=== PATIENT | male | born 1975 | race Hispanic/Latino ===

== ENCOUNTER 2017-02-06 15:53 | Observation (INO) | payer SELFPAY ==
--- NOTE | 2017-02-06 17:54 | Emergency Department Report ---
ED Chest Pain HPI - General Chief Complaint: Chest Pain Stated Complaint: CHEST PAIN Time Seen by Provider: 02/06/17 17:28 Source: patient Mode of arrival: Stretcher Limitations: No Limitations - History of Present Illness Initial Comments: 41-year-old male here with complaint of chest pain. Patient states that he has been having worsening chest pain course the last couple days. Pain is in the center of his chest and feels like it radiates to his back. He gets some nausea with that he gets some shortness of breath. He states he has worsening pain with exertion. Denies fevers chills nausea vomiting. He is a heavy smoker and has a strong family history of CAD. -: Gradual, days(s) (3) Onset: during rest, during exertion Pain Location: substernal Pain Radiation: back Severity: moderate Quality: tightness Worsens With: exertion Treatments Prior to Arrival: none - Related Data Home Medications Medication Instructions Recorded Confirmed Last Taken ALBUTEROL Inhaler [ProAir HFA 2 puff IH QID PRN 01/29/13 01/29/13 01/29/13 Inhaler] ALPRAZolam [Xanax TAB] 2 mg PO TID PRN 01/29/13 01/29/13 01/29/13 Azithromycin [Zithromax TAB] 500 mg PO QDAY 01/29/13 01/29/13 01/29/13 Carisoprodol [Soma] 350 mg PO TID 01/29/13 01/29/13 01/29/13 Hydrocodone Bit/Acetaminophen 1 each PO Q6H PRN 01/29/13 01/29/13 01/28/13 [Lortab 10-500 mg] Mometasone/Formoterol [Dulera 200 2 puff IH BID 01/29/13 01/29/13 01/29/13 Mcg/5 Mcg Inhaler] ALBUTEROL Inhaler [ProAir HFA 2 puff IH QID PRN 04/18/13 04/18/13 Unknown Inhaler] Diazepam [Valium] 10 mg PO Q8H PRN 04/18/13 04/18/13 Unknown Meloxicam [Mobic] 7.5 mg PO QDAY 04/18/13 04/18/13 Unknown Mometasone/Formoterol [Dulera 200 2 puff IH BID 04/18/13 04/18/13 Unknown Mcg/5 Mcg Inhaler] Morphine [Morphine TAB] 30 mg PO 04/18/13 04/18/13 Unknown Oxycodone HCl [oxyCODONE TAB] 20 mg PO Q6H PRN 04/18/13 04/18/13 Unknown Previous Rx's Medication Instructions Recorded Last Taken Type Promethazine [Phenergan TAB] 25 mg PO Q6H PRN #14 tablet 01/29/13 Unknown Rx HYDROcodone/APAP 7.5-325 [[place] 1 each PO Q6HR PRN #20 tablet 11/29/13 Unknown Rx 7.5/325 mg] Allergies Allergy/AdvReac Type Severity Reaction Status Date / Time butorphanol tartrate Allergy Rash Verified 04/18/13 16:47 [From Stadol] ketorolac tromethamine Allergy Itching Verified 01/29/13 12:04 [From Toradol] tramadol HCl [From Ultram] Allergy Swelling Verified 01/29/13 12:04 Heart Score - HEART Score History: Highly suspicious EKG: Normal Age: < 45 Risk factors: > 3 risk factors or hx of atherosclerotic disease Troponin: < normal limit HEART Score: 4 ED Review of Systems ROS: Stated complaint: CHEST PAIN Other details as noted in HPI Comment: All other systems reviewed and negative Constitutional: denies: chills, fever Eyes: denies: eye pain, eye discharge, vision change ENT: denies: ear pain, throat pain Respiratory: denies: cough, shortness of breath, wheezing Cardiovascular: chest pain, dyspnea on exertion. denies: palpitations Endocrine: no symptoms reported Gastrointestinal: denies: abdominal pain, nausea, diarrhea Genitourinary: denies: urgency, dysuria Musculoskeletal: denies: back pain, joint swelling, arthralgia Skin: denies: rash, lesions Neurological: denies: headache, weakness, paresthesias Psychiatric: denies: anxiety, depression Hematological/Lymphatic: denies: easy bleeding, easy bruising ED Past Medical Hx - Past Medical History Hx Hypertension: Yes Hx COPD: Yes Additional medical history: chronic back and knee pain - Surgical History Past Surgical History?: Yes Additional Surgical History: 9 right knee surgeries. Appendectomy. Vasectomy - Social History Smoking Status: Current Every Day Smoker Substance Use Type: None - Medications Home Medications: Home Medications Medication Instructions Recorded Confirmed Last Taken Type ALBUTEROL Inhaler [ProAir HFA 2 puff IH QID PRN 01/29/13 01/29/13 01/29/13 History Inhaler] ALPRAZolam [Xanax TAB] 2 mg PO TID PRN 01/29/13 01/29/13 01/29/13 History Azithromycin [Zithromax TAB] 500 mg PO QDAY 01/29/13 01/29/13 01/29/13 History Carisoprodol [Soma] 350 mg PO TID 01/29/13 01/29/13 01/29/13 History Hydrocodone Bit/Acetaminophen 1 each PO Q6H PRN 01/29/13 01/29/13 01/28/13 History [Lortab 10-500 mg] Mometasone/Formoterol [Dulera 200 2 puff IH BID 01/29/13 01/29/13 01/29/13 History Mcg/5 Mcg Inhaler] Promethazine [Phenergan TAB] 25 mg PO Q6H PRN #14 tablet 01/29/13 Unknown Rx ALBUTEROL Inhaler [ProAir HFA 2 puff IH QID PRN 04/18/13 04/18/13 Unknown History Inhaler] Diazepam [Valium] 10 mg PO Q8H PRN 04/18/13 04/18/13 Unknown History Meloxicam [Mobic] 7.5 mg PO QDAY 04/18/13 04/18/13 Unknown History Mometasone/Formoterol [Dulera 200 2 puff IH BID 04/18/13 04/18/13 Unknown History Mcg/5 Mcg Inhaler] Morphine [Morphine TAB] 30 mg PO 04/18/13 04/18/13 Unknown History Oxycodone HCl [oxyCODONE TAB] 20 mg PO Q6H PRN 04/18/13 04/18/13 Unknown History HYDROcodone/APAP 7.5-325 [[place] 1 each PO Q6HR PRN #20 tablet 11/29/13 Unknown Rx 7.5/325 mg] ED Physical Exam - General Limitations: No Limitations General appearance: alert, in no apparent distress - Head Head exam: Present: atraumatic, normocephalic - Eye Eye exam: Present: normal appearance - ENT ENT exam: Present: mucous membranes moist - Neck Neck exam: Present: normal inspection - Respiratory Respiratory exam: Present: normal lung sounds bilaterally. Absent: respiratory distress - Cardiovascular Cardiovascular Exam: Present: regular rate, normal rhythm. Absent: systolic murmur, diastolic murmur, rubs, gallop - GI/Abdominal GI/Abdominal exam: Present: soft, normal bowel sounds - Rectal Rectal exam: Present: deferred - Extremities Exam Extremities exam: Present: normal inspection - Back Exam Back exam: Present: normal inspection - Neurological Exam Neurological exam: Present: alert, oriented X3 - Psychiatric Psychiatric exam: Present: normal affect, normal mood - Skin Skin exam: Present: warm, dry, intact, normal color. Absent: rash ED Medical Decision Making - Lab Data Result diagrams: 02/06/17 17:42 02/06/17 17:42 - EKG Data -: EKG Interpreted by Me - EKG Data 02/06/17 17:55 Sinus 81 normal axis normal intervals and no ST-T wave changes - Medical Decision Making 41-year-old male here with complaint of chest pain. Patient has pain radiates to his left shoulder and back. In addition he's had some nausea and dyspnea. He describes the pain is worsening with exertion. He states he cannot take aspirin due to GI bleed in the past. Plan to give him a single dose of aspirin here in the emergency department. In addition we'll give him nitroglycerin for his pain. His EKG is unremarkable. His heart score is a 4. He denies recent stress testing. Portions of this chart were dictated with dictation software. There may be dictation errors contained within this note. Critical care attestation.: If time is entered above; I have spent that time in minutes in the direct care of this critically ill patient, excluding procedure time. ED Disposition Clinical Impression: Chest pain Disposition: OP ADMIT IP TO THIS HOSP Is pt being admited?: Yes Condition: Stable Instructions: Chest Pain (ED)
[2017-02-06 18:06] LABS: Basophils % (Auto) 0.6 % (0.0-1.8); Eosinophils % (Auto) 3.6 % (0.0-4.3); Hematocrit 53.1 % (35.5-45.6); Hemoglobin 17.8 gm/dl (11.8-15.2); Mean Corpuscular HGB Conc 34 % (32-34); Mean Corpuscular Hemoglobin 31 pg (28-32); Mean Corpuscular Volume 91 fl (84-94); Platelet Count 265 K/mm3 (140-440); Red Blood Count 5.84 M/mm3 (3.65-5.03); Red Cell Distribution Width 13.6 % (13.2-15.2); White Blood Count 14.1 K/mm3 (4.5-11.0)
--- NOTE | 2017-02-06 18:14 | XRay Report ---
FINAL REPORT PROCEDURE: Chest. TECHNIQUE: Frontal and lateral views. HISTORY: Chest pain. COMPARISON: No prior studies are available for comparison. FINDINGS: The heart and mediastinum appear normal. The lungs are clear and well expanded. There are no pleural effusions. The soft tissues and regional skeleton are unremarkable. IMPRESSION: Normal study.
[2017-02-06 18:27] LABS: Anion Gap 21 mmol/L; Blood Urea Nitrogen 13 mg/dL (9-20); Calcium 9.7 mg/dL (8.4-10.2); Carbon Dioxide 26 mmol/L (22-30); Chloride 102.3 mmol/L (98-107); Glucose 87 mg/dL (75-100); Potassium 4.9 mmol/L (3.6-5.0); Sodium 144 mmol/L (137-145)
[2017-02-06] MEDS ORDERED: NITROSTAT SL PRN (18:32)
[2017-02-06] MEDS ORDERED: ASPIRIN PO ONE (18:32)
[2017-02-06] MEDS ORDERED: MORPHINE IV ONE (19:42)
[2017-02-06] MEDS ORDERED: MORPHINE ONE (19:48)
[2017-02-06] MEDS ORDERED: NITROSTAT SL ONE (19:50)
[2017-02-06] MEDS ORDERED: MORPHINE IV PRN (21:47)
[2017-02-06] MEDS: HABITROL TD SCH (21:57)
--- NOTE | 2017-02-06 22:04 | History and Physical Report ---
History of Present Illness Date of examination: 02/06/17 Date of admission: 02/06/17 18:35 Chief complaint: L chest pain for 3 days History of present illness: - History of Present Illness Initial Comments: 41-year-old male here with complaint of chest pain. Patient states that he has been having worsening chest pain course the last couple days. Pain is in the center of his chest and feels like it radiates to his back. He gets some nausea with that he gets some shortness of breath. He states he has worsening pain with exertion. Denies fevers chills nausea vomiting. He is a heavy smoker and has a strong family history of CAD.Patient was due for cardiac stents which he postpones sec to loosing insurance. -: Gradual, days(s) (3) Onset: during rest, during exertion Pain Location: substernal Pain Radiation: back Severity: moderate Quality: tightness Worsens With: exertion Treatments Prior to Arrival: none Heart Score - HEART Score History: Highly suspicious EKG: Normal Age: < 45 Risk factors: > 3 risk factors or hx of atherosclerotic disease Troponin: < normal limit HEART Score: 4 Review of Systems ROS: Stated complaint: CHEST PAIN Other details as noted in HPI Comment: All other systems reviewed and negative Constitutional: denies: chills, fever Eyes: denies: eye pain, eye discharge, vision change ENT: denies: ear pain, throat pain Respiratory: denies: cough, shortness of breath, wheezing Cardiovascular: chest pain, dyspnea on exertion. denies: palpitations Endocrine: no symptoms reported Gastrointestinal: denies: abdominal pain, nausea, diarrhea Genitourinary: denies: urgency, dysuria Musculoskeletal: denies: back pain, joint swelling, arthralgia Skin: denies: rash, lesions Neurological: denies: headache, weakness, paresthesias Psychiatric: denies: anxiety, depression Hematological/Lymphatic: denies: easy bleeding, easy bruising - Past Medical History Hx Hypertension: Yes Hx COPD: Yes Additional medical history: chronic back and knee pain - Surgical History Past Surgical History?: Yes Additional Surgical History: 9 right knee surgeries. Appendectomy. Vasectomy - Social History Smoking Status: Current Every Day Smoker Substance Use Type: None Fam Hx HTN - Medications Home Medications: Home Medications Medication Instructions Recorded Confirmed Last Taken Type ALBUTEROL Inhaler [ProAir HFA 2 puff IH QID PRN 01/29/13 01/29/13 01/29/13 History Inhaler] ALPRAZolam [Xanax TAB] 2 mg PO TID PRN 01/29/13 01/29/13 01/29/13 History Azithromycin [Zithromax TAB] 500 mg PO QDAY 01/29/13 01/29/13 01/29/13 History Carisoprodol [Soma] 350 mg PO TID 01/29/13 01/29/13 01/29/13 History Hydrocodone Bit/Acetaminophen 1 each PO Q6H PRN 01/29/13 01/29/13 01/28/13 History [Lortab 10-500 mg] Mometasone/Formoterol [Dulera 200 2 puff IH BID 01/29/13 01/29/13 01/29/13 History Mcg/5 Mcg Inhaler] Promethazine [Phenergan TAB] 25 mg PO Q6H PRN #14 tablet 01/29/13 Unknown Rx ALBUTEROL Inhaler [ProAir HFA 2 puff IH QID PRN 04/18/13 04/18/13 Unknown History Inhaler] Diazepam [Valium] 10 mg PO Q8H PRN 04/18/13 04/18/13 Unknown History Meloxicam [Mobic] 7.5 mg PO QDAY 04/18/13 04/18/13 Unknown History Mometasone/Formoterol [Dulera 200 2 puff IH BID 04/18/13 04/18/13 Unknown History Mcg/5 Mcg Inhaler] Morphine [Morphine TAB] 30 mg PO 04/18/13 04/18/13 Unknown History Oxycodone HCl [oxyCODONE TAB] 20 mg PO Q6H PRN 04/18/13 04/18/13 Unknown History HYDROcodone/APAP 7.5-325 [[place] 1 each PO Q6HR PRN #20 tablet 11/29/13 Unknown Rx 7.5/325 mg] Medications and Allergies Allergies Allergy/AdvReac Type Severity Reaction Status Date / Time butorphanol tartrate Allergy Rash Verified 04/18/13 16:47 [From Stadol] ketorolac tromethamine Allergy Itching Verified 01/29/13 12:04 [From Toradol] tramadol HCl [From Ultram] Allergy Swelling Verified 01/29/13 12:04 aspirin AdvReac Bleeding Verified 02/06/17 18:51 Active Meds: Active Medications Morphine Sulfate (Morphine) 2 mg IV Q4H PRN PRN Reason: Pain, Moderate (4-6) Last Admin: 02/06/17 21:58 Dose: 2 mg Nicotine (Habitrol) 21 mg TD QDAY FRANKIE Last Admin: 02/06/17 21:57 Dose: 21 mg Nitroglycerin (Nitrostat) 0.4 mg SL .Q5MIN PRN PRN Reason: Chest Pain Last Admin: 02/06/17 19:51 Dose: 0.4 mg Exam - Constitutional Vitals: Temp Pulse Resp BP Pulse Ox 97.4 F L 78 18 117/82 100 02/06/17 17:29 02/06/17 20:46 02/06/17 21:58 02/06/17 20:46 02/06/17 20:46 General appearance: Present: no acute distress, well-nourished - EENT Eyes: Present: PERRL ENT: hearing intact, clear oral mucosa - Neck Neck: Present: supple, normal ROM - Respiratory Respiratory effort: normal Respiratory: bilateral: CTA - Cardiovascular Heart rate: 76 Rhythm: regular Heart Sounds: Present: S1 & S2. Absent: rub, click - Extremities Extremities: no ischemia, pulses intact, pulses symmetrical, No edema Peripheral Pulses: within normal limits - Abdominal General gastrointestinal: Present: soft, non-tender, non-distended, normal bowel sounds Male genitourinary: Present: normal - Rectal Rectal Exam: deferred - Integumentary Integumentary: Present: clear, warm, dry - Musculoskeletal Musculoskeletal: gait normal, strength equal bilaterally - Psychiatric Psychiatric: appropriate mood/affect, intact judgment & insight - Neurologic Neurologic: CNII-XII intact, moves all extremities - Allied Health Allied health notes reviewed: nursing, case management Results - Labs CBC & Chem 7: 02/06/17 17:42 02/07/17 04:35 Labs: Laboratory Last Values WBC 14.1 K/mm3 (4.5-11.0) H 02/06/17 17:42 RBC 5.84 M/mm3 (3.65-5.03) H 02/06/17 17:42 Hgb 17.8 gm/dl (11.8-15.2) H 02/06/17 17:42 Hct 53.1 % (35.5-45.6) H 02/06/17 17:42 MCV 91 fl (84-94) 02/06/17 17:42 MCH 31 pg (28-32) 02/06/17 17:42 MCHC 34 % (32-34) 02/06/17 17:42 RDW 13.6 % (13.2-15.2) 02/06/17 17:42 Plt Count 265 K/mm3 (140-440) 02/06/17 17:42 Lymph % (Auto) 28.4 % (13.4-35.0) 02/06/17 17:42 [place] % (Auto) 7.0 % (0.0-7.3) 02/06/17 17:42 Eos % (Auto) 3.6 % (0.0-4.3) 02/06/17 17:42 Baso % (Auto) 0.6 % (0.0-1.8) 02/06/17 17:42 Lymph # 4.0 K/mm3 (1.2-5.4) 02/06/17 17:42 [place] # 1.0 K/mm3 (0.0-0.8) H 02/06/17 17:42 Eos # 0.5 K/mm3 (0.0-0.4) H 02/06/17 17:42 Baso # 0.1 K/mm3 (0.0-0.1) 02/06/17 17:42 Seg Neutrophils % 60.4 % (40.0-70.0) 02/06/17 17:42 Seg Neutrophils # 8.5 K/mm3 (1.8-7.7) H 02/06/17 17:42 Sodium 144 mmol/L (137-145) 02/06/17 17:42 Potassium 4.9 mmol/L (3.6-5.0) 02/06/17 17:42 Chloride 102.3 mmol/L (98-107) 02/06/17 17:42 Carbon Dioxide 26 mmol/L (22-30) 02/06/17 17:42 Anion Gap 21 mmol/L 02/06/17 17:42 BUN 13 mg/dL (9-20) 02/06/17 17:42 Creatinine 1.0 mg/dL (0.8-1.5) 02/06/17 17:42 Estimated GFR > 60 ml/min 02/06/17 17:42 BUN/Creatinine Ratio 13.00 % 02/06/17 17:42 Glucose 87 mg/dL (75-100) 02/06/17 17:42 Calcium 9.7 mg/dL (8.4-10.2) 02/06/17 17:42 Troponin T < 0.010 ng/mL (0.00-0.029) 02/06/17 19:47 - Imaging and Cardiology EKG: report reviewed Chest x-ray: report reviewed Assessment and Plan Advance Directives: Yes (FC) VTE prophylaxis?: Chemical Plan of care discussed with patient/family: Yes - Patient Problems (1) Acute coronary syndrome Current Visit: Yes Status: Acute Plan to address problem: Patient has proven CAD and due for stents W/u initiated Serial CE's Cath versus Lexiscan (2) COPD (chronic obstructive pulmonary disease) Current Visit: Yes Status: Chronic Qualifiers: COPD type: C Chronic bronchitis type: C Emphysema type: unspecified Qualified Code(s): J43.9 - Emphysema, unspecified Plan to address problem: Cont Dulera and Proventil (3) KIERSTEN (generalized anxiety disorder) Current Visit: Yes Status: Chronic Plan to address problem: Cont Xanax (4) Nicotine dependence Current Visit: Yes Status: Chronic Qualifiers: Nicotine product type: cigarettes Substance use status: S Plan to address problem: Nicoderm patch initiated (5) DVT prophylaxis Current Visit: Yes Status: Acute Plan to address problem: On Lovenox
[2017-02-06] MEDS ORDERED: DILAUDID IV PRN ×2 (22:05→22:07)
[2017-02-06] MEDS ORDERED: DULCOLAX PR PRN (22:05)
[2017-02-06] MEDS ORDERED: TYLENOL PO PRN (22:05)
[2017-02-06] MEDS ORDERED: ZOFRAN IV PRN (22:05)
[2017-02-06] MEDS ORDERED: MILK OF MAGNESIA PO PRN (22:05)
[2017-02-06 23:47] LABS: Creatine Kinase 33 units/L (55-170)
[2017-02-06 23:49] LABS: Creatine Kinase MB < 1.0 ng/mL (0.0-4.0)
[2017-02-07 05:43] LABS: Alanine Aminotransferase 17 units/L (7-56); Albumin 3.8 g/dL (3.9-5); Albumin/Globulin Ratio 1.5 %; Alkaline Phosphatase 75 units/L (35-129); BUN/Creatinine Ratio 16.66; Blood Urea Nitrogen 15 mg/dL (9-20); Calcium 8.6 mg/dL (8.4-10.2); Carbon Dioxide 22 mmol/L (22-30); Glucose 90 mg/dL (75-100); Total Protein 6.3 g/dL (6.3-8.2)
[2017-02-07 05:44] LABS: Anion Gap 21 mmol/L; Chloride 101.2 mmol/L (98-107); Creatine Kinase 28 units/L (55-170); Potassium 3.8 mmol/L (3.6-5.0); Sodium 140 mmol/L (137-145)
[2017-02-07 05:50] LABS: Creatine Kinase MB < 1.0 ng/mL (0.0-4.0)
--- NOTE | 2017-02-07 07:45 | Admit Criteria Form ---
Admission Criteria Documentation: CARDIOLOGY GRG Clinical Indications for Admission to Inpatient Care ([place]/check or initial the applicable condition/criteria) Hospital admission is needed for appropriate care of the patient because of ANY ONE of the following: [ ] I. Hemodynamic instability as indicated by ALL of the following (1)(2)(3) (4)(5)(6)(7)(8)(9)(10) [ ]a) Vital sign abnormality not readily corrected by appropriate treatment with 12-24 hours for ANY ONE: [ ]i) Hypotension that persists despite appropriate treatment (eg, volume repletion) [ ]ii) Tachycardiathat persists despite appropriate tx ( e.g., analgesia, fluids, sedation as indicated [ ]iii) Orthostatic vital sign changes that persists despite appropriate treatment (eg, volume repletion) [ ]b) Vital sign abnormailty that is severe indicated by ANY ONE of the following: [ ]i) Inadequate perfusion indicated by ANY ONE of the following: [ ] 1) Lactic acidosis (> 2 mmol/L) [ ] 2) New abnormal capillary refill (> 3 seconds) [ ] 3) Reduced urine output [ ] 4) New altered mental status [ ] 5) Myocardial Ischemia [ ] 6) Other metabolic acidosis (arterial pH <7.35 ) not otherwise explained. [ ]ii) Mean arterial pressure[A] less than 60 mm Hg [ ]iii) Mean arterial pressure[A] less than 70 mm Hg after 30 minutes of appropriate treatment (eg, fluid resuscitation) [ ]iv) Sustained heart rate greater than 120 beats per minute in adult or child 6 years or older[B] [ ]v) IV inotropic or vasopressor medication required to maintain adequate blood pressure or perfusion [ ] II. Severe heart failure as indicated by ANY ONE of the following(17)(18) [ ]a) Respiratory distress [ ]b) Hypotension [ ]c) Debilitating anasarca refractory to therapy (eg, tissue breakdown with infection)[C](19) [ ]d) Cardiac arrhythmias of immediate concern [ ]e) Myocardial ischemia [ ] III. Cardiac arrhythmias or findings of immediate concern indicated by ANY ONE of the following (21)(22): [ ] a) Heart rhythms that are inherently dangerous or unstable indicated by ANY ONE of the following (23)(24)(25): [ ] i) Resuscitated ventricular fibrillation or cardiac arrest [ ] ii) Ventricular escape rhythm [ ] iii) Sustained ventricular tachycardia (30 seconds or more of ventricular rhythm at greater than 100 beats per minute) [ ] iv) Nonsustained ventricular tachycardia and ANY ONE of the following: [ ] 1) Suspected cardiac ischemia as cause or consequence of ventricular tachycardia [ ] 2) Acute myocarditis [ ] b) Unstable cardiac conduction defects indicated by ANY ONE of the following(25)(26)(27) [ ] i) Type II second-degree atrioventricular block [ ]ii) Third-degree atrioventricular block [ ]iii) New-onset left bundle branch block with suspected myocardial ischemia [ ]c) Any heart rhythm and ANY ONE of the following (23)(24)(28)(29) (30) [ ] i) Continuous long-term ECG monitoring needed (e.g., initiation of drug requiring monitoring for more than 24 hours) [ ] ii) Patient has automatic implanted cardioverter defibrillator that is repeatedly firing, malfunctioning, or in need of immediate adjustment of settings beyond the scope of ambulatory or observation care [ ]d) Heart rhythms of concern due to ANY ONE of the following: [ ] i) Hypotension [ ] ii) Respiratory distress [ ] iii) Association with other significant symptoms (e.g., bradycardia with syncope or ongoing dizziness, supraventricular tachycardia with chest pain (28)(29)(31) [ ] IV. Monitoring for cardiac contusion beyond the scope of observation care needed [A](32)(33)(34) [ ] V. Surgical or device complication (e.g., valve replacement complication , ICD disfunction or pacemaker dysfunction) (49)(50)(51)(52)(53)(54) [ ] . Inpatient palliative care needed. [F](51)(52) Also use Inpatient Palliative Care Criteria [ ] VII. Nonbacterial thrombotic (mar[place]) endocarditis(43)(44)(55)(56)(57) [X] VIII. Cardiology condition, symptom, or finding for which emergency and observation care has failed or are not considered appropriate. [ ] IX. Acute valvular disease requiring inpatient as indicated by ANY ONE of the following (40)(41) [ ]a) Acute valvular regurgitation (42) [ ]b) Noninfectious valvulitis (43)(44) [ ]c) Obstructive valve thrombosis (45)(46) [ ]d) Paravalvular leak(47)(48) [ ]e) Other significant valvular disorder remaining after emergency or observation level of care (as appropriate) [ ]X. Pericardial disease requiring inpatient treatment as indicated by ANY ONE of the following (35)(36)(37)(38) [ ]a) Suspected tamponade [ ]b) Hemopericardium [ ]c) Other significant pericardial disorder remaining after emergency or observation level of care (as appropriate)(39) [ ] XI. Cardiac ischemia beyond scope of emergency and observation care. [ ] XII. Cyanotic heart disease requiring inpatient care as indicated by 1 or more of the following(58)(59)(60): [ ]a) Acute onset of hypoxemia [ ]b) Exacerbation [ ] XIII. Hypertension requiring inpatient treatment as indicated by ANYONE of the following(11)(12)(13)(14): [ ]a) Severe hypertension (SBP greater than 180 mm Hg or DBP greater than 110 mm Hg, or greater than the 95th percentile for age, gender, and height in pediatric patients) that cannot be controlled (eg, to SBP less than 160 mm Hg and DBP less than 100 mm Hg) by emergency department or observation care treatment(15) [ ]b) Acute end organ damage secondary to hypertension (SBP greater than 140 mm Hg or DBP greater than 90 mm Hg) as indicated by ANYONE of the following: [ ] i) Hypertensive encephalopathy (eg, Altered mental status)(16) [ ] ii) Cerebral infarction [ ] iii) Intracranial hemorrhage [ ] iv) Myocardial ischemia or infarction [ ] v) Heart failure (eg, pulmonary edema) [ ] vi) Aortic dissection [ ] vii) Increased creatinine (new) with reduction of more than 50% in estimated glomerular filtration rate from baseline [ ] viii) Papilledema [ ] ix) Retinal hemorrhage [ ] x) Microangiopathic hemolytic anemia [ ] xi) Seizure [ ] xii) Other significant finding secondary to hypertension [ ] XIV. Complications of transplanted heart indicated by ANY ONE of the following(61): [ ]a) Acute graft rejection requiring inpatient management (eg, intravenous imunosuppression)(62)(63) [ ]b) Acute graft heart failure indicated by ANY ONE of the following(64): [ ] i) Hemodynamic instability [ ] ii) Cardiac arrhythmias of immediate concern [ ] iii) Pulmonary edema that is very severe (eg, mechanical ventilation needed, imminent or likely, need for 100% oxygen to keep oxygen saturation above 90%) [ ] iv) Pulmonary edema that is persistent as indicated by ALL of the following: [ ] 1) New need for oxygen therapy to keep oxygen saturation above 90 % (or increased FiO2 need from baseline) [ ] 2) Has not improved sufficiently with emergency department or observation care IV diuretics or other heart failure treatments[E]. [ ] iv) Altered mental status that is severe or persistent [ ] iv) Increased creatinine (new on laboratory test) with reduction of more than 50% in estimated glomerular filtration rate from baseline [ ] iv) Progressively (ongoing) rising creatinine (known from past laboratory test) with reduction of more than 25% in estimated glomerular filtration rate from baseline [ ] iv) Acute renal failure [ ] iv) Acute peripheral ischemia (eg, examination shows pulseless, cool, mottled, or cyanotic extremity) [ ] iv) Pulmonary artery catheter monitoring needed [ ] iv) Other sign or symptom of heart failure requiring inpatient treatment (ie, too severe or not responsive to outpatient and observation care treatment) [ ]c) Infection requiring inpatient management (eg, Hemodynamic instability, need for intravenous antimicrobial treatment)(66)(67)(68)(69)(70) [ ]d) Cardiac allograft vasculopathy requiring inpatient management (eg evidence of cardiacischemia)(71) [ ]e) Other complication of transplanted heart (eg, stroke, severe pulmonary hypertension, severe valvular dysfunction) requiring inpatient management(72) The original [employer] content created by [employer] has been revised. The portions of the content which have been revised are identified through the use of italic text or in bold, and [facility] has neither reviewed nor approved the modified material. All other unmodified content is copyright [employer] [employer] [facility]. Please see references footnoted in the original [employer] edition 2017 Admission Criteria Met: Yes
[2017-02-07] MEDS ORDERED: LEXISCAN IV ONE ×2 (08:18→08:38)
[2017-02-07] MEDS ORDERED: PEPCID PO SCH (10:00)
[2017-02-07] MEDS: HABITROL TD SCH (10:03)
--- NOTE | 2017-02-07 10:51 | Consultation ---
History of Present Illness Consult date: 02/07/17 Consult reason: chest pain History of present illness: There is a 41 year old male who is presenting with substernal chest pain at rest. Denies any diaphoresis nausea or vomiting. He was admitted for further evaluation and management Past History Past Medical History: COPD, hypertension Past Surgical History: Other (Knee surgery) Social history: single, smoking. denies: alcohol abuse Family history: no significant family history Medications and Allergies Allergies Allergy/AdvReac Type Severity Reaction Status Date / Time butorphanol tartrate Allergy Rash Verified 04/18/13 16:47 [From Stadol] ketorolac tromethamine Allergy Itching Verified 01/29/13 12:04 [From Toradol] tramadol HCl [From Ultram] Allergy Swelling Verified 01/29/13 12:04 aspirin AdvReac Bleeding Verified 02/06/17 18:51 Active Meds: Active Medications Acetaminophen (Tylenol) 650 mg PO Q4H PRN PRN Reason: Pain MILD(1-3)/Fever >100.5/BATRES Bisacodyl (Dulcolax) 10 mg CO QDAY PRN PRN Reason: Constipation unrelieved by MOM Famotidine (Pepcid) 20 mg PO BID FRANKIE Hydromorphone HCl (Dilaudid) 1 mg IV Q3H PRN PRN Reason: Pain , Severe (7-10) Last Admin: 02/07/17 04:31 Dose: 1 mg Magnesium Hydroxide (Milk Of Magnesia) 30 ml PO Q4H PRN PRN Reason: Constipation Morphine Sulfate (Morphine) 2 mg IV Q4H PRN PRN Reason: Pain, Moderate (4-6) Last Admin: 02/06/17 21:58 Dose: 2 mg Nicotine (Habitrol) 21 mg TD QDAY FRANKIE Last Admin: 02/06/17 21:57 Dose: 21 mg Nitroglycerin (Nitrostat) 0.4 mg SL .Q5MIN PRN PRN Reason: Chest Pain Last Admin: 02/06/17 19:51 Dose: 0.4 mg Ondansetron HCl (Zofran) 4 mg IV Q8H PRN PRN Reason: N/V unrelieved by Reglan Review of Systems Cardiovascular: chest pain Physical Examination Vital Signs Temp Pulse Resp BP Pulse Ox 97.4 F L 75 16 146/85 99 02/06/17 17:29 02/06/17 17:29 02/06/17 17:29 02/06/17 17:29 02/06/17 17:29 General appearance: no acute distress, well-nourished HEENT: Positive: PERRL, Mucus Membranes Moist Neck: Positive: neck supple, trachea midline Cardiac: Positive: Reg Rate and Rhythm, S1/S2. Negative: Audible Murmur Lungs: Positive: clear to auscultation, Normal Breath Sounds Neuro: Positive: Grossly Intact Abdomen: Positive: Soft, Active Bowel Sounds. Negative: Tender, Distended Male genitourinary: Positive: normal Skin: Positive: Clear Incision: Cardiac Cath Site Musculoskeletal: No Pain, Normal Range of Motion Extremities: Present: normal. Absent: edema Results 02/06/17 17:42 02/07/17 04:35 Cardiac Enzymes 02/06/17 02/07/17 02/07/17 Range/Units 22:31 04:35 04:35 AST 13 (5-40) units/L CK-MB (CK-2) < 1.0 < 1.0 (0.0-4.0) ng/mL Comprehensive Metabolic Panel 02/07/17 Range/Units 04:35 Sodium 140 (137-145) mmol/L Potassium 3.8 D (3.6-5.0) mmol/L Chloride 101.2 (98-107) mmol/L Carbon Dioxide 22 (22-30) mmol/L BUN 15 (9-20) mg/dL Creatinine 0.9 (0.8-1.5) mg/dL Glucose 90 (75-100) mg/dL Calcium 8.6 (8.4-10.2) mg/dL AST 13 (5-40) units/L ALT 17 (7-56) units/L Alkaline Phosphatase 75 (35-129) units/L Total Protein 6.3 (6.3-8.2) g/dL Albumin 3.8 L (3.9-5) g/dL - EKG Interpretation EKG: sinus rhythm Assessment and Plan 1. Atypical chest pain probably musculoskeletal in origin 2. Chronic obstructive pulmonary disease 3. Polycythemia probably secondary polycythemia due to smoking Plan. Patient is currently stable Lexiscan thallium scan was done today and showed normal myocardial perfusion scan images. Recommends steroid anti-inflammatory drugs as required.
[2017-02-07 11:27] LABS: Creatine Kinase 35 units/L (55-170)
[2017-02-07 11:41] LABS: Creatine Kinase MB < 1.0 ng/mL (0.0-4.0)
--- NOTE | 2017-02-07 12:36 | Discharge Summary ---
Providers - Providers Date of Admission: 02/06/17 18:35 Date of discharge: 02/07/17 Attending physician: MARCIA NOE 02/06/17 22:05 Consult to Physician [CONS] Routine Consulting Provider: GENOVEVA CEE Reason For Exam: ACS Place consult to:: Dr. Cee Notified:: Gera MEANS Phone number called:: Was contact made?: Yes If yes, spoke with:: [facility] service Time called:: 08:43 Primary care physician: [employer] Hospitalization Condition: Good Pertinent studies: Lexiscan unremarkable Hospital course: He presented with atypical chest pain brought in worked up for cardiac etiology was negative thought to be costochondritis. Will give patient medication for costochondritis. Disposition: TO HOME OR SELFCARE - Discharge Diagnoses (1) Chest pain Status: Acute Qualifiers: Chest pain type: C Ischemic chest pain type: I Comment: Atypical secondary to costochondritis we'll discharge with NSAIDs. (2) Nicotine dependence Status: Chronic Qualifiers: Nicotine product type: cigarettes Substance use status: S Comment: Physical cessation patient states he is on management to cut down and is down to half a pack. We'll continue the gum. Core Measure Documentation - Palliative Care Palliative Care/ Comfort Measures: Not Applicable - Core Measures Any of the following diagnoses?: none Exam - Constitutional Vitals: Temp Pulse Resp BP Pulse Ox 98.2 F 107 H 18 128/97 97 02/07/17 05:41 02/07/17 09:11 02/07/17 04:31 02/07/17 09:11 02/06/17 21:00 General appearance: Present: no acute distress, well-nourished - EENT Eyes: Present: PERRL ENT: hearing intact, clear oral mucosa - Neck Neck: Present: supple, normal ROM - Respiratory Respiratory effort: normal Respiratory: bilateral: CTA - Cardiovascular Heart Sounds: Present: S1 & S2. Absent: rub, click - Extremities Extremities: pulses symmetrical, No edema Peripheral Pulses: within normal limits - Abdominal General gastrointestinal: Present: soft, non-tender, non-distended, normal bowel sounds Male genitourinary: Present: normal - Integumentary Integumentary: Present: clear, warm, dry - Musculoskeletal Musculoskeletal: gait normal, strength equal bilaterally - Psychiatric Psychiatric: appropriate mood/affect, intact judgment & insight - Neurologic Neurologic: CNII-XII intact, moves all extremities Plan Activity: no restrictions Weight Bearing Status: Non-Weight Bearing Diet: low cholesterol Special Instructions: smoking cessation Follow up with: PRIMARY CARE, [Primary Care Provider] - 7 Days Prescriptions: Nicotine [Habitrol] 21 mg TD QDAY #1 patch
[2017-02-07 13:14] VITALS: BP 132/90
--- NOTE | 2017-02-09 03:43 | Treadmill Report ---
THALLIUM STRESS TEST LEFT VENTRICLE: Left ventricular chamber size is within normal spread. Perfusion study demonstrates homogeneous uptake of the tracer in all segments, no significant perfusion defects identified. Gated analysis is not available. CONCLUSION: Normal myocardial perfusion study. JOB# [id number] CA/NTS
== END 2017-02-07 14:00 | disposition home or self-care (01) ==
LOC: ED 15:53 → 4A 18:35
PROVIDERS: ADMIT Internal Medicine; ATTEND Internal Medicine
DX: I24.9 Acute ischemic heart disease, unspecified (principal); J44.9 Chronic obstructive pulmonary disease, unspecified; F41.1 Generalized anxiety disorder; F17.200 Nicotine dependence, unspecified, uncomplicated; D75.1 Secondary polycythemia
CPT/HCPCS: 36415; 71020; 78452; 80048; 80053; 82550; 82553; 83036; 84484; 85025; 93005; 93010; 93017; 96374; 96375; 96376; 99285; A9502; G0378; J1170; J2270; J2785